=== PATIENT | male | born 1955 | race Caucasian/White ===

== ENCOUNTER 2016-07-08 04:13 | Emergency (ER) | payer MEDICAID, OTHER ==
[~2016-07-08] VITALS: Ht 193 cm; Wt 110.0 kg
[2016-07-08] VITALS (8 sets, daily range): BP systolic 111–150; BP diastolic 56–97; PULSE 67–90; RESP 16–20; TEMP 98.2–98.3; O2SAT 97–99
[~2016-07-08 04:13] MED LIST: DIAZ10TA PO; FINA5TAB2 PO; LEVO125T4 PO; TAMS5CAP PO
[2016-07-08] MEDS ORDERED: SODIUM CHLOR 0.9% 1000 ML INJ 1,000 ML IV ONE ×2 (04:45→11:45)
[2016-07-08] MEDS ORDERED: TETANUS/DIPHTHERIA TOXOID ADULT 0.5 ML VIAL IM ONE (04:45)
[2016-07-08 05:03] LABS: AUTOMATED NEUTROPHIL # 4.2 TH/MM3 (1.8-7.7); BASOPHIL # 0.1 TH/MM3 (0-0.2); EOSINOPHIL # 0.1 TH/MM3 (0-0.4); EOSINOPHIL % 1.5 % (0.0-4.0); HEMATOCRIT 35.5 % (39.0-51.0); HEMO FLAGS DIFF FINAL; LYMPH % 16.8 % (9.0-44.0); MEAN CELL VOLUME 94.9 FL (80.0-100.0); MEAN CORPUSCULAR HEMOGLOBIN 31.5 PG (27.0-34.0); MEAN CORPUSCULAR HGB CONC 33.2 % (32.0-36.0); MONO % 8.9 % (0.0-8.0); NEUT % 70.8 % (16.0-70.0); PLATELET COUNT 274 TH/MM3 (150-450); RED BLOOD COUNT 3.74 MIL/MM3 (4.50-5.90); RED CELL DISTRIBUTION WIDTH 16.2 % (11.6-17.2); WHITE BLOOD COUNT 5.9 TH/MM3 (4.0-11.0)
[2016-07-08 05:17] LABS: ALT (GPT) 16 U/L (12-78); ANION GAP 10 MEQ/L (5-15); AST (GOT) 22 U/L (15-37); BICARBONATE 19.4 MEQ/L (21.0-32.0); BLOOD UREA NITROGEN 22 MG/DL (7-18); CHLORIDE 116 MEQ/L (98-107); GLOMERULAR FILTRATION RATE 58 ML/MIN (>89); POTASSIUM 3.6 MEQ/L (3.5-5.1); SODIUM (NA) 145 MEQ/L (136-145)
[2016-07-08 05:19] LABS: ALKALINE PHOSPHATASE 63 U/L (45-117); TOTAL BILIRUBIN ADULT 0.5 MG/DL (0.2-1.0)
[2016-07-08 05:20] LABS: ACETAMINOPHEN LESS THAN 2.0 MCG/ML (10.0-30.0)
[2016-07-08 05:24] LABS: INTERNATIONAL NORMALIZED RATIO 1.3 RATIO; PROTHROMBIN TIME - PATIENT 14.4 SEC (9.8-11.6)
[2016-07-08] MEDS ORDERED: IOHEXOL 350 MG/ML 10 ML VIAL (for RAD DIAG) IV ONE (05:46)
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
--- NOTE | 2016-07-08 06:16 | RADRPT ---
EXAM DATE/TIME: 07/08/2016 05:12 [facility] COMPARISON: No previous studies available for comparison. INDICATIONS : Fall. MEDICAL HISTORY : None. SURGICAL HISTORY : None. ENCOUNTER: Initial ACUITY: 1 day PAIN SCORE: 0/10 LOCATION: Left knee FINDINGS: There is mild osteoarthritis with joint space narrowing but no significant marginal osteophyte format ion in the medial tibiofemoral compartment. There is no evidence of acute fracture. Bony mineralizati on is normal. There is no evidence of joint effusion. CONCLUSION: 1. There is no evidence of acute fracture. Ozzie Ni MD on July 08, 2016 at 6:14 Board Certified Radiologist. This report was verified electronically.
--- NOTE | 2016-07-08 06:18 | RADRPT ---
EXAM DATE/TIME: 07/08/2016 05:35 [facility] COMPARISON: CT BRAIN W/O CONTRAST, November 27, 2014, 16:01. INDICATIONS : Altered mental status. RADIATION DOSE: 47.27 CTDIvol (mGy) MEDICAL HISTORY : None SURGICAL HISTORY : Tonsillectomy. ENCOUNTER: Initial ACUITY: 1 day PAIN SCALE: 0/10 LOCATION: cranial TECHNIQUE: Multiple contiguous axial images were obtained of the head. Using automated exposure control and adj ustment of the mA and/or kV according to patient size, radiation dose was kept as low as reasonably a chievable to obtain optimal diagnostic quality images. FINDINGS: Noncontrast axial head CT demonstrates the ventricles to be normal in size and configuration with a n ormal sulcal pattern. No acute intracranial hemorrhage, acute cortical infarction, mass or midline sh ift is seen. There is a small increased density in the periventricular white matter on the right unch anged from the prior study which may reflect a small cavernous angioma. Posterior fossa structures ar e unremarkable. Bone windows are unremarkable. CONCLUSION: 1. No evidence of acute intracranial pathology. No masses are identified.8 Ozzie Ni MD on July 08, 2016 at 6:15 Board Certified Radiologist. This report was verified electronically.
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
[2016-07-08 07:42] LABS: AMPHETAMINE, URINE NEG (NEG); BARBITURATES, URINE NEG (NEG); COCAINE, URINE NEG (NEG)
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
[2016-07-09 02:06] VITALS: BP 113/59; PULSE 65; RESP 18; O2SAT 99
[2016-07-09 06:13] VITALS: BP 108/51; PULSE 69; RESP 18; O2SAT 98
[2016-07-09 08:31] VITALS: BP 108/51; TEMP 97.6
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
== END 2016-07-09 08:58 | disposition home or self-care (01) ==
LOC: NEPD 04:13 → NEPJ 07-09 08:58
DX: F32.1 Major depressive disorder, single episode, moderate (principal); S83.402A Sprain of unspecified collateral ligament of left knee, initial encounter; S80.10XA Contusion of unspecified lower leg, initial encounter; S31.119A Laceration without foreign body of abdominal wall, unspecified quadrant without penetration into peritoneal cavity, initial encounter; X78.9XXA Intentional self-harm by unspecified sharp object, initial encounter; Z23 Encounter for immunization; Z79.899 Other long term (current) drug therapy
CPT/HCPCS: 70450; 73564; 74177; 80053; 80307; 84443; 85025; 85610; 85730; 90471; 90714; 96360; 96361; 99285; J7030; Q9967